=== PATIENT | female | born 1950 | race Two or more races ===

== ENCOUNTER 2022-02-19 11:19 | Outpatient (REF) | payer OTHER, SELFPAY ==
[2022-02-19 13:54] LABS: Hematocrit 37.8 % (37.0-47.0); Hemoglobin 11.8 g/dl (12.0-16.0); Mean Corpuscular HGB Conc 31.2 g/dl (31.0-35.0); Mean Corpuscular Hemoglobin 26.7 pg (27.0-33.0); Mean Corpuscular Volume 85.5 fL (80.0-98.0); Mean Platelet Volume 9.8 fL (9.4-12.3); Platelet Count 261 X10*3/uL (160-400); Red Blood Count 4.42 X10*6/uL (4.20-5.50); Red Cell Distribution Width 13.9 % (11.0-16.0); White Blood Count 7.2 X10*3/uL (4.8-10.8)
[2022-02-19 14:08] LABS: Alanine Aminotransferase 17 U/L (0-31); Albumin Level 4.2 g/dL (3.5-5.0); Alkaline Phosphatase 125 U/L (39-117); Anion Gap 14 (12-20); Aspartate Amino Transferase 17 U/L (5-31); Bilirubin Total 0.4 mg/dL (0.0-1.0); Blood Urea Nitrogen 17 mg/dL (9-16); Calcium 9.2 mg/dL (8.4-10.2); Carbon Dioxide 28 mmol/L (22-29); Chloride 106 mmol/L (96-108); Cholesterol 125 mg/dL; Estimated Glomerular Filt Rate > 60; Glucose Fasting 103 mg/dL (60-99); HDL Cholesterol 51 mg/dL; LDL Cholesterol Calculated 60 mg/dl; Potassium 3.7 mmol/L (3.3-5.1); Sodium 144 mmol/L (135-145); Triglycerides 74 mg/dL
== END 2022-02-19 11:20 | disposition home or self-care (01) ==
LOC: HO.WFDLDS 11:19
PROVIDERS: Visit Provider Hospitalist
DX: Z00.00 Encounter for general adult medical examination without abnormal findings (principal); N39.42 Incontinence without sensory awareness; R82.71 Bacteriuria
CPT/HCPCS: 36415; 80053; 80061; 85027; 87086; 87088; 87186

== ENCOUNTER 2022-04-01 13:29 | Outpatient (REF) | payer OTHER, SELFPAY | END 2022-04-01 13:30 | disposition home or self-care (01) | LOC: HO.LNP 13:29 | PROVIDERS: Visit Provider Hospitalist | DX: R82.71 Bacteriuria (principal) | CPT/HCPCS: 87086 ==